=== PATIENT | male | born 1990 | race Caucasian/White ===

== ENCOUNTER 2017-11-04 18:46 | Emergency (ER) | payer SELFPAY ==
[2017-11-04] MEDS ORDERED: Diphtheria,Pertussis(Acell),Tetanus Vaccine 0.5 ML Syringe IM ONE (19:16)
[2017-11-04] MEDS ORDERED: Bacitracin Oint 1 GM U/D Packet TOP ONE (19:16)
--- NOTE | 2017-11-04 19:22 | EDM.PDOC ---
ED HPI GENERAL MEDICAL PROBLEM - General Chief Complaint: Skin Complaint Stated Complaint: PT HAS SPIDER BITE ON LT LEG Time Seen by Provider: 11/04/17 19:08 - History of Present Illness INITIAL COMMENTS - FREE TEXT/NARRATIVE: HISTORY AND PHYSICAL: History of present illness: The patient is a healthy 27-year-old male who is unsure of his last tetanus shot and presents with a five-day history of a lesion/sore on his anterior left thigh that increased in size and then ruptured draining copious amounts of fluid and who presents tonight for persistent redness and concerns about the lesion. The patient has had no systemic complaints of fever chills nausea vomiting and does not recall any specific bite or injury to the area. He said that after the fluid drained he was cleaning it with alcohol but not manipulating the area. He says that the lesion is still present which is why he came for evaluation. He has no local provider and has no issues with ambulation or movement of the leg and has no neurosensory changes in the leg. He has no lesions elsewhere on his body. Review of systems: As per history of present illness and below otherwise all systems reviewed and negative. Past medical history: As per history of present illness and as reviewed below otherwise noncontributory. Surgical history: As per history of present illness and as reviewed below otherwise noncontributory. Social history: No reported history of drug or alcohol abuse. Family history: As per history of present illness and as reviewed below otherwise noncontributory. Physical exam: General: Well-developed well-nourished thin man who is nontoxic and vital signs are reviewed by me HEENT: Atraumatic, normocephalic, negative for conjunctival pallor or scleral icterus, mucous membranes moist, throat clear, neck supple, nontender, trachea midline. Lungs: Clear to auscultation, breath sounds equal bilaterally, chest nontender. Heart: S1S2, regular rate and rhythm no overt murmurs Abdomen: Soft, nondistended, nontender. NABS Pelvis: Stable nontender. Genitourinary: Deferred. Rectal: Deferred. Extremities: Atraumatic full range of motion without any defects or deficits, at the anterior left thigh there is a circular quarter-sized open scab with a 6 x 6 cm surrounding area of induration and erythema without fluctuance appreciated. There is no streaking of the erythema in the compartment is soft and the patient is able to flex and extend at the knee and thigh without difficulty. There is inguinal adenopathy on this side and there are no other lesions appreciated., negative for cords or calf pain. Neurovascular unremarkable. Neuro: Awake, alert, oriented. Cranial nerves II through XII unremarkable. Cerebellum unremarkable. Motor and sensory unremarkable throughout. Exam nonfocal. Diagnostics: [] Therapeutics: Wound care, Tdap I discussed with the patient that the area actually looks very clean and good and has already in the healing process but we would add antibiotics to further facilitate this. I've advised him on wound care at home and need for follow-up. I will give him Bactrim Impression: Left thigh lesion/abscess/cellulitis with spontaneous drainage Definitive disposition and diagnosis as appropriate pending reevaluation and review of above. left upper leg Pain Score (Numeric/FACES): 7 - Related Data Allergies Allergy/AdvReac Type Severity Reaction Status Date / Time No Known Allergies Allergy Verified 11/04/17 19:07 Home Meds: Home Meds . [No Known Home Meds] 11/04/17 [History] Past Medical History HEENT History: Reports: None Cardiovascular History: Reports: None Respiratory History: Reports: None Gastrointestinal History: Reports: None Genitourinary History: Reports: None Musculoskeletal History: Reports: None Neurological History: Reports: None Psychiatric History: Reports: None Endocrine/Metabolic History: Reports: None Hematologic History: Reports: None Immunologic History: Reports: None Oncologic (Cancer) History: Reports: None Dermatologic History: Reports: None - Infectious Disease History Infectious Disease History: Reports: None - Past Surgical History Head Surgeries/Procedures: Reports: None GI Surgical History: Reports: Appendectomy Social & Family History - Family History Family Medical History: Noncontributory - Tobacco Use Smoking Status *Q: Current Every Day Smoker Years of Tobacco use: 8 Packs/Tins Daily: 1 - Caffeine Use Caffeine Use: Reports: Soda - Recreational Drug Use Recreational Drug Use: No ED ROS GENERAL - Review of Systems Review Of Systems: See Below (See dictation) ED EXAM, SKIN/RASH Exam: See Below (See dictation) Course - Vital Signs Last Recorded V/S: Last Vital Signs Temp 36.6 C 11/04/17 19:08 Pulse 87 11/04/17 19:08 Resp 18 11/04/17 19:08 BP 120/59 L 11/04/17 19:08 Pulse Ox 98 11/04/17 19:08 - Orders/Labs/Meds Orders: Active Orders 24 hr Category Date Time Status Communication Order [RC] STAT Care 11/04/17 19:16 Ordered Vaccines to be Administered [RC] PER UNIT ROUTINE Care 11/04/17 19:16 Ordered Bacitracin [Bacitracin Oint 1 GM] Med 11/04/17 19:16 Once 1 dose TOP ONETIME ONE Diphth,Pertuss(Acell),Tet Vac [Adacel] Med 11/04/17 19:16 Once 0.5 ml IM .ONCE ONE Departure - Departure Time of Disposition: 19:21 Disposition: Home, Self-Care 01 Condition: Good Clinical Impression: Abscess Cellulitis Qualifiers: Site of cellulitis: extremity Site of cellulitis of extremity: lower extremity Laterality: left Qualified Code(s): L03.116 - Cellulitis of left lower limb - Discharge Information Referrals: PCP,None [Primary Care Provider] - Additional Instructions: The following information is given to patients seen in the emergency department who are being discharged to home. This information is to outline your options for follow-up care. We provide all patients seen in our emergency department with a follow-up referral. The need for follow-up, as well as the timing and circumstances, are variable depending upon the specifics of your emergency department visit. If you don't have a primary care physician on staff, we will provide you with a referral. We always advise you to contact your personal physician following an emergency department visit to inform them of the circumstance of the visit and for follow-up with them and/or the need for any referrals to a consulting specialist. The emergency department will also refer you to a specialist when appropriate. This referral assures that you have the opportunity for followup care with a specialist. All of these measure are taken in an effort to provide you with optimal care, which includes your followup. Under all circumstances we always encourage you to contact your private physician who remains a resource for coordinating your care. When calling for followup care, please make the office aware that this follow-up is from your recent emergency room visit. If for any reason you are refused follow-up, please contact the [facility] emergency department at and ask to speak to the emergency department charge nurse. [facility] Primary care- [place] [address] Please keep the wound clean and dry with mild soap and water pack dry and apply bacitracin or Neosporin. Please take antibiotics you have been prescribed, Bactrim DS, until they're finished. You may use [id number] medications for any pain. Please call and schedule a follow-up appointment in our clinic for further evaluation and care and return to ER as needed and as discussed - My Orders Last 24 Hours: My Active Orders 11/04/17 19:16 Communication Order [RC] STAT Vaccines to be Administered [RC] PER UNIT ROUTINE Bacitracin [Bacitracin Oint 1 GM] 1 dose TOP ONETIME ONE Diphth,Pertuss(Acell),Tet Vac [Adacel] 0.5 ml IM .ONCE ONE - Assessment/Plan Last 24 Hours: My Active Orders 11/04/17 19:16 Communication Order [RC] STAT Vaccines to be Administered [RC] PER UNIT ROUTINE Bacitracin [Bacitracin Oint 1 GM] 1 dose TOP ONETIME ONE Diphth,Pertuss(Acell),Tet Vac [Adacel] 0.5 ml IM .ONCE ONE
== END 2017-11-04 19:38 | disposition home or self-care (01) ==
LOC: MW.ED 18:46
DX: L02.416 Cutaneous abscess of left lower limb (principal); L03.116 Cellulitis of left lower limb; Z23 Encounter for immunization; F17.210 Nicotine dependence, cigarettes, uncomplicated; Z90.49 Acquired absence of other specified parts of digestive tract
CPT/HCPCS: 90471; 90715; 99282; 99282-25